=== PATIENT | female | born 1960 | race Caucasian/White ===

== ENCOUNTER 2017-08-29 01:54 | Emergency (ER) | payer SELFPAY ==
[~2017-08-29] VITALS: Ht 170.2 cm; Wt 98.5 kg
[2017-08-29] MEDS ORDERED: SULFAMETHOX/TRIMETH DS 800-160 MG/TABLET PO ONE (03:00)
[2017-08-29] MEDS ORDERED: CEPHALEXIN MONOHYDRATE 500 MG CAPSULE PO ONE (03:00)
[2017-08-29 04:54] LABS: BASOPHILS % (AUTO) 1.5 % (0.0-2.0); HEMATOCRIT 37.9 % (36-46); HEMOGLOBIN 12.6 g/dL (12.0-16.0); LYMPHOCYTES # (AUTO) 2.1 K/uL (1.0-4.8); LYMPHOCYTES % (AUTO) 25.2 % (22.0-44.0); MEAN CORPUSCULAR HEMOGLOBIN 29.4 pg (26.0-34.0); MEAN CORPUSCULAR HGB CONC 33.3 G/dL (31.0-37.0); MEAN CORPUSCULAR VOLUME 88 fL (80-100); MONOCYTES # (AUTO) 0.5 K/uL (0.1-1.0); MONOCYTES % (AUTO) 6.1 % (2.0-9.0); NEUTROPHILS # (AUTO) 5.4 K/uL (1.8-7.7); NEUTROPHILS % (AUTO) 64.2 % (40.0-70.0); PLATELET COUNT (AUTO) 254 K/uL (150-450); RED BLOOD CELL COUNT(AUTO) 4.29 MIL/uL (4.00-5.20); RED CELL DISTRIBUTION WIDTH 14.4 % (11.5-14.5)
[2017-08-29 05:50] VITALS: BP 137/79
== END 2017-08-29 08:03 | disposition left against medical advice (07) ==
LOC: EMS 01:56
DX: R60.0 Localized edema (principal); M25.562 Pain in left knee; F11.90 Opioid use, unspecified, uncomplicated; F15.90 Other stimulant use, unspecified, uncomplicated; F17.210 Nicotine dependence, cigarettes, uncomplicated; Z88.0 Allergy status to penicillin
CPT/HCPCS: 85379; 99285

== ENCOUNTER 2017-08-29 23:03 | Emergency (ER) | payer SELFPAY ==
[~2017-08-29] VITALS: Ht 157.5 cm; Wt 98.6 kg
[2017-08-30 04:55] VITALS: BP 139/67
== END 2017-08-30 04:57 | disposition home or self-care (01) ==
LOC: EMS 23:03
DX: M25.462 Effusion, left knee (principal); R60.0 Localized edema; I87.2 Venous insufficiency (chronic) (peripheral); I87.8 Other specified disorders of veins; F17.210 Nicotine dependence, cigarettes, uncomplicated; F15.10 Other stimulant abuse, uncomplicated; F11.10 Opioid abuse, uncomplicated; Z88.0 Allergy status to penicillin
CPT/HCPCS: 93970; 99284; 99406